=== PATIENT | female | born 1975 | race African-American/Black ===

== ENCOUNTER 2019-05-07 17:00 | Inpatient (IN) | payer OTHER ==
[~2019-05-07] VITALS: Ht 167.6 cm; Wt 102.3 kg
--- NOTE | 2019-05-07 21:05 | NUR ---
Admitted a 43 years old female from [facility] accompanied by 2 paramedics via gurney, with Diagnosis of Bilateral pelvic fracture. Patient AAOX4. In no acute distress. Patient reported pain medication started to wear off some, but pain still tolerable at this time. Denies any SOB. Assisted to BSC with 2 person assist. Needs attended to and met. Routine admission care done. Plan of care initiated. Safety measure initiated and call nino within reached. Continue to monitor.
[2019-05-07] MEDS ORDERED: Z GUARD REMEDY PASTE 57 GM TUBE TOP PRN (21:15)
[2019-05-07] MEDS ORDERED: TAMS-3 PO (21:29)
[2019-05-07] MEDS ORDERED: TIZA4TAB5 PO (21:29)
[2019-05-07] MEDS ORDERED: GABA-532 PO (21:29)
[2019-05-07] MEDS ORDERED: DOCU100C36 PO (21:29)
[2019-05-07] MEDS ORDERED: METH-406 PO (21:29)
[2019-05-07] MEDS ORDERED: METHOCARBAMOL 500 MG TABLET ONE (22:12)
[2019-05-07] MEDS ORDERED: LIDOCAINE VISCUS 2% 15 ML UDC ONE (22:14)
[2019-05-07] MEDS ORDERED: FAMOTIDINE 20 MG TABLET ONE (22:15)
[2019-05-07] MEDS ORDERED: IBUPROFEN 600 MG TABLET ONE (22:15)
[2019-05-07] MEDS ORDERED: MAG HYDROX/AL HYDROX/SIMETH 30 ML LIQUID UDC ONE (22:15)
[2019-05-07] MEDS: METHOCARBAMOL 500 MG TABLET PO PRN (22:23)
[2019-05-07] MEDS: OXYCODONE HCL 10 MG TAB.SR.12H PO SCH (23:43)
[2019-05-07] MEDS ORDERED: ONDANSETRON HCL 4 MG TABLET PO PRN (23:45)
[2019-05-08] MEDS ORDERED: MELATONIN 3 MG TABLET PO PRN
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
[2019-05-08 00:17] VITALS: BP 138/85
[2019-05-08] MEDS: OXYCODONE HCL 10 MG TAB.SR.12H PO SCH ×3 (05:38→21:24)
[2019-05-08 05:48] VITALS: BP 117/65
--- NOTE | 2019-05-08 06:11 | NUR ---
PATIENT AOX4. IN NO ACUTE DISTRESS. DENIES ANY SOB. PAIN MANAGE BY ROUTINE OXYCONTIN. ALSO GIVEN METHOCARBAMOL 500MG POX1 FOR MUSCLE SPASM. VS WNL. NEEDS ATTENDED TO AND MET. SAFETY MEASURE MAINTAINED AND CALL PERKINS WITHIN REACHED.
[2019-05-08 08:31] VITALS: BP 110/45
[2019-05-08] MEDS: DOCUSATE SODIUM 100 MG CAPSULE PO SCH ×2 (08:46→18:01)
[2019-05-08] MEDS: TIZANIDINE HCL 4 MG TABLET PO SCH ×3 (08:46→18:01)
[2019-05-08] MEDS: GABAPENTIN 100 MG CAPSULE PO SCH ×3 (08:46→18:00)
[2019-05-08] MEDS: METHOCARBAMOL 500 MG TABLET PO PRN (08:48)
[2019-05-08] MEDS: HYDROCODONE/APAP 10-325 MG TABLET PO PRN (08:54)
--- NOTE | 2019-05-08 16:06 | NUR ---
PATIENT IS ALERT, ORIENTED X4, VERBALLY RESPONSIVE, NO SOB,RESP EVEN NONLABORED,SKIN WARM AND DRY TO TOUCH, NO DISTRESS NOTED, PAIN IS MANAGED WITH PAIN MEDICATION AND REPOSITIONING, DISTRACTION. CONTINUE TO MONITOR
--- NOTE | 2019-05-08 16:28 | NUR ---
PATIENT HAD A QUESTION REGARDING HER MEDICATIONS, MADE PATIENT CLEAR ABOUT MEDICATIONS, PAIN MEDICATION, OXYCONTIN 10MG EVERY 8 HOURS, AND NORCO FOR BREAK THOUGH PAIN. ALSO GETTING HER ZENAFLEX AND ROBAXIN, PATIENT VERBALIZED UNDERSTANDING OF HER MEDS. OFFERED PATIENT TO LET NURSING KNOW IF PAIN IS NOT WELL, MANAGED, WILL FOLLOW UP WITH DR MCARTHUR NEEDED FOR PAIN MANAGEMENT.
--- NOTE | 2019-05-08 19:36 | NUR ---
PATIENT WAS REQUSTING FOR DIFFERENT PAIN MEDICATION, OXYIR, PER MD RECOMMENDATION EXPLAIN PATIENT THE CURRENT PAIN MEDS AGAIN, ENDORSED TO NEXT SHIFT ACCORDINGLY.,
[2019-05-08 20:10] VITALS: BP 108/49
[2019-05-08] MEDS: TAMSULOSIN HCL 0.4 MG CAP.SR.24H PO SCH (21:23)
--- NOTE | 2019-05-08 21:40 | NUR ---
Received pt resting in bed. AAO x4. No acute distress noted. C/o 7/10 pain on the pelvic area, routine pain med and other due med given as ordered. Safety measures maintained. Call light and personal items within reach. Will continue to monitor.
[2019-05-09] MEDS: HYDROCODONE/APAP 10-325 MG TABLET PO PRN ×2 (00:24→09:38)
[2019-05-09] MEDS: METHOCARBAMOL 500 MG TABLET PO PRN ×2 (00:24→22:13)
[2019-05-09 05:00] VITALS: BP 115/58
[2019-05-09] MEDS: OXYCODONE HCL 10 MG TAB.SR.12H PO SCH ×3 (05:34→21:03)
[2019-05-09] MEDS ORDERED: MELATONIN 3 MG TABLET PO PRN (06:30)
[2019-05-09 07:12] LABS: BASOPHILS % (AUTO) 0.5 % (0.0-2.0); EOSINOPHILS # (AUTO) 0.2 K/uL (0.0-0.7); EOSINOPHILS % (AUTO) 1.8 % (0.0-7.0); HEMATOCRIT 33.7 % (31.2-41.9); HEMOGLOBIN 10.9 g/dL (10.9-14.3); LYMPHOCYTES # (AUTO) 2.3 K/uL (20.0-40.0); LYMPHOCYTES % (AUTO) 26.4 % (20.5-51.5); MEAN CORPUSCULAR HEMOGLOBIN 29.4 uug (24.7-32.8); MEAN CORPUSCULAR HGB CONC 32 g/dL (32.3-35.6); MEAN CORPUSCULAR VOLUME 90.8 fL (75.5-95.3); MONOCYTES # (AUTO) 0.8 K/uL (2.0-10.0); MONOCYTES % (AUTO) 9.5 % (0.0-11.0); NEUTROPHILS # (AUTO) 5.3 K/uL (1.8-8.9); NEUTROPHILS % (AUTO) 61.8 % (38.5-71.5); PLATELET COUNT (AUTO) 233 K/uL (179-408); RED BLOOD CELL COUNT(AUTO) 3.72 MIL/uL (3.63-4.92); WHITE BLOOD COUNT (AUTO) 8.7 K/uL (3.8-11.8)
[2019-05-09 07:38] LABS: THYROID STIMULATING HORMONE 3.357 mIU/mL (0.358-3.740)
[2019-05-09 08:03] LABS: BILIRUBIN,TOTAL 0.3 mg/dL (0.2-1.0); CREATININE 0.7 mg/dL (0.6-1.3); TOTAL PROTEIN, SERUM 6.7 g/dL (6.4-8.2)
[2019-05-09 08:06] LABS: MAGNESIUM 1.9 mg/dL (1.8-2.4); PHOSPHOROUS 3.5 mg/dL (2.5-4.9)
[2019-05-09 08:20] VITALS: BP 119/58
[2019-05-09] MEDS: DOCUSATE SODIUM 100 MG CAPSULE PO SCH ×2 (09:04→18:04)
[2019-05-09] MEDS: GABAPENTIN 100 MG CAPSULE PO SCH ×3 (09:04→18:04)
[2019-05-09] MEDS: TIZANIDINE HCL 4 MG TABLET PO SCH ×3 (09:05→18:05)
[2019-05-09 16:11] VITALS: BP 117/55
--- NOTE | 2019-05-09 19:20 | NUR ---
Patient is AAO x 4. Able to express needs. NO acute distress. Vital signs stable for patient. Afebrile. Due meds administered as ordered and scheduled. Patient with pain of 8/10 on pelvic area [place] 10/325mg 1 tab po administered adn effective; pt. also on Oxycontin 10mg PO q 8hrs for pain mgnt. On PT/OT therapy. Patient with 1 person assist. NO c/o pain at this time, needs met, safety measures in place and will continue with care.
[2019-05-09 20:41] VITALS: BP 129/46
[2019-05-09] MEDS: TAMSULOSIN HCL 0.4 MG CAP.SR.24H PO SCH (21:02)
--- NOTE | 2019-05-09 21:31 | NUR ---
Received pt sitting in the wheelchair. AAO x4. Visitor at bedside. No acute distress noted. Pt is now safely back to bed. C/o 10/28 on pelvic area, scheduled pain med and other due med given as ordered. Safety measures maintained. Call light and personal items within reach. Will continue to monitor.
[2019-05-10] MEDS: HYDROCODONE/APAP 10-325 MG TABLET PO PRN ×2 (01:34→07:59)
[2019-05-10 04:30] VITALS: BP 106/57
[2019-05-10] MEDS: OXYCODONE HCL 10 MG TAB.SR.12H PO SCH ×2 (05:38→13:19)
[2019-05-10] MEDS: DOCUSATE SODIUM 100 MG CAPSULE PO SCH ×2 (08:00→17:43)
[2019-05-10] MEDS: METHOCARBAMOL 500 MG TABLET PO PRN ×2 (08:00→22:07)
[2019-05-10] MEDS: GABAPENTIN 100 MG CAPSULE PO SCH ×3 (08:00→17:43)
[2019-05-10 08:07] VITALS: BP 111/53
[2019-05-10] MEDS: TIZANIDINE HCL 4 MG TABLET PO SCH ×3 (09:04→17:44)
--- NOTE | 2019-05-10 13:33 | NUR ---
CALL LIGHT IS FIXED AND WORKING, PATIENT CLAIMED HER BLANKET IS MISSING, TRIED TO LOOK AROUND IN THE ROOM CONTACTED EVS, WILL CONTINUE TO LOOK.
--- NOTE | 2019-05-10 13:59 | NUR ---
INDIVIDUALIZE OVERALL PLAN OF CARE
[2019-05-10 16:44] VITALS: BP 115/59
--- NOTE | 2019-05-10 18:12 | NUR ---
CHANGED PAIN MEDICATION OXYCONTIN 10MG TO EVERY 6 HOURS AROUND THE CLOCK ORDERED BY DR YOON
[2019-05-10 20:00] VITALS: BP 125/61
--- NOTE | 2019-05-10 20:00 | NUR ---
PT RECEIVED IN BED DURING SHIFT EXCHANGED. HELPED PT TO BEDSIDE COMMODE AND REPOSITIONING. WILL CONTINUE TO MONITOR.
--- NOTE | 2019-05-11 | NUR ---
PT RESTING WITH NO SIGNS OF RESPIRATORY DISTRESS. WILL CONTINUE TO MONITOR.
[2019-05-11] MEDS: OXYCODONE HCL 10 MG TAB.SR.12H PO SCH ×5 (00:15→23:59)
[2019-05-11] MEDS: MELATONIN 3 MG TABLET PO PRN (00:15)
[2019-05-11] MEDS: HYDROCODONE/APAP 10-325 MG TABLET PO PRN (02:56)
--- NOTE | 2019-05-11 04:00 | NUR ---
PT RESTING COMFORTABLY, WITH NO COMPLAINTS OF PAIN CURRENTLY. WILL ENDORSE TO DAY SHIFT NURSE. WILL CONTINUE TO MONITOR.
[2019-05-11] MEDS: METHOCARBAMOL 500 MG TABLET PO PRN ×3 (06:29→20:45)
[2019-05-11 07:48] VITALS: BP 95/74
[2019-05-11] MEDS: GABAPENTIN 100 MG CAPSULE PO SCH ×3 (08:23→17:36)
[2019-05-11] MEDS: DOCUSATE SODIUM 100 MG CAPSULE PO SCH ×2 (08:23→17:35)
[2019-05-11] MEDS: TIZANIDINE HCL 4 MG TABLET PO SCH ×3 (08:24→17:36)
--- NOTE | 2019-05-11 18:29 | NUR ---
Pt received this morning. scrap sorter endorse holding scheduled pain medication. Pt c/o pain 10/28 at beginning of shift, following report. Scheduled pain medication administered. Pt teaching provided, and plan of care discussed. Pt reports muscle spasms being the cause of pain and wishing to utilize PRN muscle spasm medication instead of PRN [place] for pain. VSS. Pt complaint with medication administration. No therapy today. Pt assisted to BSC for voidingx2 and back to bed. Bed in locked and lowest position, alarm on, side rails up x2. All comfort and safety measures implemented. Call light and personal belongings placed within reach. Pt repositioned for comfort. Will continue to monitor for safety and endorse to oncoming cook night.
--- NOTE | 2019-05-11 19:30 | NUR ---
Received pt in bed, a/o x4. In acute distress at this time. Wet chux changed and replaced. Assisted with pericare. Needs attended. No c/o pain at this time.
[2019-05-11 19:52] VITALS: BP 120/69
[2019-05-12] MEDS: METHOCARBAMOL 500 MG TABLET PO PRN ×4 (02:39→22:28)
[2019-05-12 04:00] VITALS: BP 124/57
[2019-05-12] MEDS: OXYCODONE HCL 10 MG TAB.SR.12H PO SCH ×4 (06:18→23:56)
--- NOTE | 2019-05-12 06:32 | NUR ---
Pt in bed, resting. c/o didn't sleep well last night. She was given Robaxin PRN and oxycodone as ordered. Pt was assisted to commode several times.
[2019-05-12 07:58] LABS: BASOPHILS # (AUTO) 0.1 K/uL (0.0-8.0); BASOPHILS % (AUTO) 0.8 % (0.0-2.0); EOSINOPHILS # (AUTO) 0.2 K/uL (0.0-0.7); EOSINOPHILS % (AUTO) 1.6 % (0.0-7.0); HEMOGLOBIN 10.6 g/dL (10.9-14.3); LYMPHOCYTES # (AUTO) 2.2 K/uL (20.0-40.0); LYMPHOCYTES % (AUTO) 23.2 % (20.5-51.5); MEAN CORPUSCULAR HEMOGLOBIN 29.3 uug (24.7-32.8); MEAN CORPUSCULAR HGB CONC 33 g/dL (32.3-35.6); MEAN CORPUSCULAR VOLUME 88.6 fL (75.5-95.3); MONOCYTES # (AUTO) 0.8 K/uL (2.0-10.0); MONOCYTES % (AUTO) 8.1 % (0.0-11.0); NEUTROPHILS # (AUTO) 6.2 K/uL (1.8-8.9); NEUTROPHILS % (AUTO) 66.3 % (38.5-71.5); PLATELET COUNT (AUTO) 303 K/uL (179-408); RED BLOOD CELL COUNT(AUTO) 3.61 MIL/uL (3.63-4.92); WHITE BLOOD COUNT (AUTO) 9.3 K/uL (3.8-11.8)
[2019-05-12 08:00] VITALS: BP 109/58
[2019-05-12 08:13] LABS: BILIRUBIN,DIRECT 0.1 mg/dL (0.0-0.2); BILIRUBIN,TOTAL 0.3 mg/dL (0.2-1.0); CREATININE 0.7 mg/dL (0.6-1.3); MAGNESIUM 1.9 mg/dL (1.8-2.4); PHOSPHOROUS 4.2 mg/dL (2.5-4.9); TOTAL PROTEIN, SERUM 6.8 g/dL (6.4-8.2)
[2019-05-12] MEDS: DOCUSATE SODIUM 100 MG CAPSULE PO SCH ×2 (08:45→17:09)
[2019-05-12] MEDS: GABAPENTIN 100 MG CAPSULE PO SCH ×3 (08:46→17:09)
[2019-05-12] MEDS: TIZANIDINE HCL 4 MG TABLET PO SCH ×4 (08:46→23:56)
[2019-05-12 16:49] VITALS: BP 120/72
--- NOTE | 2019-05-12 17:31 | NUR ---
Pt received this morning, no acute distress. Reported pain caused by muscle spasms reduced through use of scheduled Zanaflex and PRN Robaxin. Pt seen by , new order received to increase Zanaflex 4mg to Q6hr. Pt teaching provided. Pt complaint with medication administration. Rescheduled therapy for afternoon. Pt assisted to BSC for BMx1, and returned to bed. Alarm on, side rails up. Call light and personal items placed within reach. Will continue to monitor and endorse to oncoming retail shift manager.
[2019-05-12] MEDS: HYDROCODONE/APAP 10-325 MG TABLET PO PRN (20:46)
[2019-05-12 20:53] VITALS: BP 107/59
--- NOTE | 2019-05-13 01:22 | NUR ---
aaox4 OOB to the BR with walker with supervision. VSS. Needs attended. Due meds given as ordered. Will monitor patient. Siderails up for safety. Robaxin given for muscle spasm.Will monitor patient.
[2019-05-13] MEDS: MELATONIN 3 MG TABLET PO PRN (01:34)
[2019-05-13 05:33] VITALS: BP 114/64
[2019-05-13] MEDS: OXYCODONE HCL 10 MG TAB.SR.12H PO SCH ×3 (05:52→18:50)
[2019-05-13] MEDS: TIZANIDINE HCL 4 MG TABLET PO SCH ×3 (05:52→17:02)
--- NOTE | 2019-05-13 06:43 | NUR ---
slept well most of the shift. VSS OOB to the BSC with assist. Voiding well. Needs attended. Due meds given as ordered. Will monitor patient.
[2019-05-13] MEDS: GABAPENTIN 100 MG CAPSULE PO SCH ×3 (08:09→17:02)
[2019-05-13] MEDS: DOCUSATE SODIUM 100 MG CAPSULE PO SCH ×2 (08:09→17:02)
[2019-05-13] MEDS: METHOCARBAMOL 500 MG TABLET PO PRN (08:09)
[2019-05-13 08:23] VITALS: BP 108/57
--- NOTE | 2019-05-13 11:00 | NUR ---
Pt received this morning, assessed, no acute distress or SOB, pain reported due to muscle spasms, PRN medication administered as ordered. Pt compliant with routine medication administration. Pt assisted to BSC for voidingx1, and returned to bed, repositioned. Bed in locked and lowest position with side rails up x2, bed alarm on. All comfort and safety needs met. Call light and personal items placed within reach. Will continue to monitor.
[2019-05-13 20:00] VITALS: BP 115/65
[2019-05-14] MEDS: OXYCODONE HCL 10 MG TAB.SR.12H PO SCH ×5 (00:10→23:07)
[2019-05-14] MEDS: TIZANIDINE HCL 4 MG TABLET PO SCH ×5 (00:11→23:06)
[2019-05-14] MEDS: MELATONIN 3 MG TABLET PO PRN (01:27)
[2019-05-14] MEDS: METHOCARBAMOL 500 MG TABLET PO PRN ×3 (02:45→21:05)
[2019-05-14 05:42] VITALS: BP 103/53
[2019-05-14] MEDS: DOCUSATE SODIUM 100 MG CAPSULE PO SCH ×2 (09:05→17:01)
[2019-05-14] MEDS: GABAPENTIN 100 MG CAPSULE PO SCH ×3 (09:05→17:01)
--- NOTE | 2019-05-14 13:35 | NUR ---
PATIENT CALLED TO THE STATION TO CATCH THE BEE. NOTED WITH LOT OF BEES IN PATIENT ROOM, ASSISTED PATIENT OUT OF ROOM RIGHT AWAY FOR SAFETY, CLOSED THE DOOR TO PROTECT OTHERS, ENGINEERING MADE AWARE AND WORKING ON THE ISSUES. PATIENT WOULD BE MOVED TO ANOTHER ROOM FOR SAFETY. PATIENT HAS LOT OF HER PERSONAL STUFF FROM HOME IN HER ROOM, SUCH LOT OF ESSENTIAL OILS IN TINY BOTTLES, BUNCH OF WHITEHEAD, DIFFUSER. ENGINEERING SPOKE TO PATIENT ABOUT SAFETY ISSUES COUPLE TIMES, HOWEVER PATIENT KEEP REFUSING TO SEND THEM HOME. DIFFUSER IS WORKING IN HER ROOM 11/11 DIFFUSING VAPORS OF ESSENTIAL OILS, WITH FRAGRANCE, SPOKE TO PATIENT COUPLE TIMES FOR FIRE SAFETY WELL, HOWEVER PATIENT REFUSED TO PUT ANYTHING AWAY, OR SEND THEM HOME. PATIENT ALSO STATED THAT "NO ONE SHOULD TOUCH ANY OF MY STUFF" REINFORCED THE INSTRUCTIONS FOR SAFETY HAZARDS. Addendum: 05/14/19 at 1405 by DEDRICK FORMAN RN, RN DIRECTOR AND INFECTION CONTROL MADE AWARE ABOUT THE ISSUE
--- NOTE | 2019-05-14 15:05 | NUR ---
TRANSFERRED PATIENT IN ANOTHER ROOM 103 FOR SAFETY. DID NOT TOUCH ANYTHING ELSE IN THE ROOM PATIENT SAID THAT " DO NOT TOUCH MY STUFF, ONLY MY FRIENDS CAN TRANSFER MY STUFF OR TOUCH THEM"
--- NOTE | 2019-05-14 15:19 | NUR ---
INTERDISCIPLINARY TEAM CONFERENCE
--- NOTE | 2019-05-14 16:51 | NUR ---
STUFF MOVED FROM ROOM 122 TO 103 BY PATIENT FAMILY, WHITEHEAD AND DIFFUSER AND SOME OTHER STUFF TAKEN HOME BY FAMILY. PATIENT MAKES STAFF MOVE CLOSETS OR OTHER FURNITURE FREQUENTLY, HERE TO THERE OR THIS END TO OTHER END IN THE ROOM.
--- NOTE | 2019-05-14 18:06 | NUR ---
PATIENT IS ALERT, ORIENTED X4, NO SOB,RESP EVEN NONLABORED,SKIN WARM AND DRY TO TOUCH NO DISTRESS NOTED
--- NOTE | 2019-05-14 18:09 | NUR ---
PATIENT IS VERY DEMANDING, CALLS TO THE NURSING STATION FREQUENTLY FOR STUFF LIKE BRING THE CHAIR FOR GUEST, BRING ANOTHER CAHIR FOR ANOTHER GUEST, BRING THE EXTRA TABLE TO THE ROOM, BRING THE EXTRA CLOSET FOR MY STUFF, REARRANGE THE STUFF IN THE ROOM, NEEDS ATTENDED APPROPRIATELY AND WITH PRIORITY.
--- NOTE | 2019-05-14 18:12 | NUR ---
CALL LIGHT WITH IN REACH, ASSISTED WITH BEDSIDE COMMODE.
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
--- NOTE | 2019-05-14 19:45 | NUR ---
Received patient in bed. AAO x4. Not in acute distress or SOB. On room air. Able to make needs known. No complain of pain at this time. Physical assessment done. Fall prevention observed. Safety measures maintained. Bed in low and lock position, alarm on, side rails up x2 for safety. Call light and frequently used items within reach. Continue to monitor.
[2019-05-14 20:48] VITALS: BP 131/68
[2019-05-15 05:48] VITALS: BP 104/49
[2019-05-15] MEDS: TIZANIDINE HCL 4 MG TABLET PO SCH ×4 (05:49→23:14)
[2019-05-15] MEDS: OXYCODONE HCL 10 MG TAB.SR.12H PO SCH ×4 (05:50→23:15)
[2019-05-15 07:43] LABS: BASOPHILS % (AUTO) 0.5 % (0.0-2.0); EOSINOPHILS # (AUTO) 0.2 K/uL (0.0-0.7); EOSINOPHILS % (AUTO) 2.1 % (0.0-7.0); HEMATOCRIT 30.4 % (31.2-41.9); HEMOGLOBIN 10.2 g/dL (10.9-14.3); LYMPHOCYTES # (AUTO) 2.3 K/uL (20.0-40.0); LYMPHOCYTES % (AUTO) 23.5 % (20.5-51.5); MEAN CORPUSCULAR HGB CONC 34 g/dL (32.3-35.6); MEAN CORPUSCULAR VOLUME 89.4 fL (75.5-95.3); MONOCYTES # (AUTO) 0.7 K/uL (2.0-10.0); NEUTROPHILS # (AUTO) 6.5 K/uL (1.8-8.9); NEUTROPHILS % (AUTO) 66.9 % (38.5-71.5); PLATELET COUNT (AUTO) 352 K/uL (179-408); WHITE BLOOD COUNT (AUTO) 9.6 K/uL (3.8-11.8)
--- NOTE | 2019-05-15 08:00 | NUR ---
RESIDENT ON BED DURING NURSING ROUNDS , AWAKE, ALERT AND RESPONSIVE, NOT IN RESPIRATORY DISTRESS .NO C/O MADE AT THIS TIME.
[2019-05-15 08:39] LABS: ALANINE AMINOTRANSFERASE 85 U/L (14-59); ALKALINE PHOSPHATASE 93 U/L (50-136); ASPARTATE AMINOTRANSFERASE 18 U/L (15-37); BILIRUBIN,DIRECT < 0.1 mg/dL (0.0-0.2); CREATININE 0.7 mg/dL (0.6-1.3); PHOSPHOROUS 3.9 mg/dL (2.5-4.9); TOTAL PROTEIN, SERUM 6.9 g/dL (6.4-8.2)
[2019-05-15 08:40] LABS: BILIRUBIN,TOTAL 0.3 mg/dL (0.2-1.0); CARBON DIOXIDE 28 mmol/L (21-32); CHLORIDE 102 mmol/L (98-107); GLUCOSE 103 mg/dL (74-106); UREA NITROGEN, BLOOD 13 mg/dL (7-18)
[2019-05-15 08:47] VITALS: BP 97/49
[2019-05-15] MEDS: DOCUSATE SODIUM 100 MG CAPSULE PO SCH ×2 (09:42→17:50)
[2019-05-15] MEDS: GABAPENTIN 100 MG CAPSULE PO SCH ×3 (09:42→23:14)
[2019-05-15] MEDS: METHOCARBAMOL 500 MG TABLET PO PRN (09:46)
[2019-05-15 15:39] VITALS: BP 108/58
--- NOTE | 2019-05-15 18:44 | NUR ---
PATIENT REFUSED TO TAKE HER 1700 DUE NEURONTIN, SHE WANTS IT TONIGHT AT BEDTIME BECAUSE IT MAKES HER SLEEP. CHARGE NURSE MADE AWARE OF IT. CALLED ALSO PHARMACY,SPOKE WITH THE PHARMACIST AND SHE SAID SHE'LL CHANGE THE TIME.
--- NOTE | 2019-05-15 18:55 | NUR ---
ALL PT'S NEED ATTENDED PROMPTLY.
[2019-05-15 21:04] VITALS: BP 114/63
[2019-05-15] MEDS ORDERED: GABAPENTIN 100 MG CAPSULE PO SCH (22:00)
[2019-05-16 05:43] VITALS: BP 104/61
[2019-05-16] MEDS: GABAPENTIN 100 MG CAPSULE PO SCH ×4 (06:07→23:06)
[2019-05-16] MEDS: TIZANIDINE HCL 4 MG TABLET PO SCH ×4 (06:07→23:06)
[2019-05-16] MEDS: OXYCODONE HCL 10 MG TAB.SR.12H PO SCH ×4 (06:08→23:06)
[2019-05-16] MEDS: DOCUSATE SODIUM 100 MG CAPSULE PO SCH ×2 (09:39→18:10)
[2019-05-16] MEDS: METHOCARBAMOL 500 MG TABLET PO PRN (09:39)
[2019-05-16] MEDS: HYDROCODONE/APAP 10-325 MG TABLET PO PRN (09:40)
[2019-05-16 10:55] VITALS: BP 122/74
[2019-05-16 16:03] VITALS: BP 117/66
--- NOTE | 2019-05-16 19:35 | NUR ---
Received patient sitting in bed. AAO x4. Not in acute distress or SOB. On room air. Able to make needs known. No complain of pain at this time. Physical assessment done. Fall prevention observed. Safety measures maintained. Bed in low and lock position, alarm on, side rails up x2 for safety. Call light and frequently used items within reach. Continue to monitor.
[2019-05-17] MEDS: GABAPENTIN 100 MG CAPSULE PO SCH ×4 (05:44→23:21)
[2019-05-17] MEDS: TIZANIDINE HCL 4 MG TABLET PO SCH ×4 (05:45→23:21)
[2019-05-17] MEDS: OXYCODONE HCL 10 MG TAB.SR.12H PO SCH ×4 (05:45→18:34)
--- NOTE | 2019-05-17 07:30 | NUR ---
Patient calm and comfortable with no signs of distress; patient will continue to be monitored.
[2019-05-17 08:00] VITALS: BP 116/65
[2019-05-17] MEDS: DOCUSATE SODIUM 100 MG CAPSULE PO SCH ×2 (08:41→18:32)
[2019-05-17 16:00] VITALS: BP 112/64
--- NOTE | 2019-05-17 19:25 | NUR ---
Patient calm and comfortable through out shift with no sings of distress; patient with stable vital signs. Patient refused oxycodone as she stated she needed to do work ; oxycodone returned in return bin.
--- NOTE | 2019-05-17 19:36 | NUR ---
Received patient in bed. AAO x4. Not in acute distress or SOB. On room air. Able to make needs known. No complain of pain at the time. Physical assessment done. Fall prevention observed. Safety measures maintained. Bed in low and lock position, alarm on, side rails up x2 for safety. Call light and frequently used items within reach. Continue to monitor.
[2019-05-17 20:29] VITALS: BP 124/79
[2019-05-18] MEDS: OXYCODONE HCL 10 MG TAB.SR.12H PO SCH ×5 (00:15→18:00)
--- NOTE | 2019-05-18 03:38 | NUR ---
End of the shift report: Patient was stable during the shift and had a good sleep. No signs of acute distress or SOB. Complained of pain in her pelvic area. Warm bag was provided based on patient's request. Pain assessed and reassessed after pain medication. All due medication were given as ordered and well tolerated. All needs attended promptly. Physical assessment done. Fall prevention observed. Safety measures maintained. Bed in low and lock position, alarm on, side rails up x2 for safety. Call light and frequently used items within reach. Continue to monitor and will endorse to the oncoming nurse accordingly.
[2019-05-18 04:30] VITALS: BP 125/76
[2019-05-18] MEDS: TIZANIDINE HCL 4 MG TABLET PO SCH ×3 (05:07→17:01)
[2019-05-18] MEDS: GABAPENTIN 100 MG CAPSULE PO SCH ×3 (05:07→17:01)
[2019-05-18] MEDS: METHOCARBAMOL 500 MG TABLET PO PRN ×3 (08:23→21:33)
[2019-05-18] MEDS: DOCUSATE SODIUM 100 MG CAPSULE PO SCH ×2 (08:24→17:01)
--- NOTE | 2019-05-18 14:53 | NUR ---
PATIENT IS ALERT, ORIENTED X4, VERBALLY RESPONSIVE, NO SOB, RESP EVEN NONLABORED, SKIN WARM AND DRY TO TOUCH, NO DISTRESS NOTED, TOLERATED PT, OT WELL, ABLE TO AMBULATE WITH FWW, USES COMMODE BY HERSELF. PATIENT STATED SHE WAS WILLING TO TAKE LESS PAIN MEDS BUT SHE COULD NOT. PAIN IS WELL MANAGED.
--- NOTE | 2019-05-18 19:44 | NUR ---
PATIENT ALERT ORIENTED, NO SOB NO CHEST PAIN, CONT PAIN MANAGEMENT. PATIENT STAYED IN HER BED, RESTING, CONT TO MONITOR.
[2019-05-18] MEDS: HYDROCODONE/APAP 10-325 MG TABLET PO PRN (20:25)
[2019-05-18 20:43] VITALS: BP 129/85
[2019-05-19] MEDS: OXYCODONE HCL 10 MG TAB.SR.12H PO SCH ×4 (00:51→18:07)
[2019-05-19] MEDS: TIZANIDINE HCL 4 MG TABLET PO SCH ×4 (00:51→18:07)
[2019-05-19] MEDS: GABAPENTIN 100 MG CAPSULE PO SCH ×4 (00:51→18:06)
[2019-05-19 05:43] VITALS: BP 128/73
--- NOTE | 2019-05-19 07:19 | NUR ---
Nurse Notes: report from the night nurse Priscila Barth RN, patient is rsting in bed, Pain level is 7-8/10 in the hips. Room scented, request pain medications at 0930. In no respiratory distress.
[2019-05-19] MEDS: DOCUSATE SODIUM 100 MG CAPSULE PO SCH ×2 (09:01→17:18)
[2019-05-19] MEDS: METHOCARBAMOL 500 MG TABLET PO PRN (10:11)
[2019-05-19] MEDS: HYDROCODONE/APAP 10-325 MG TABLET PO PRN (10:12)
--- NOTE | 2019-05-19 10:12 | NUR ---
Nurse Notes: medicated with [place] 10/325, pain level was 8/10. patient will have her therapy. Complaining of hip pain.
[2019-05-19 16:35] VITALS: BP 105/65
--- NOTE | 2019-05-19 19:30 | NUR ---
Nurse Notes: report given to Alma Suggs RN, patient is resting in bed. In no respiratory distress.
--- NOTE | 2019-05-19 19:45 | NUR ---
Nurses notes: Received pt in no acute distress. sitting on the side of the bed. Pt is alert and oriented x4. Pt is oob with a walker. Uses the bedside commode. Will continue to monitor for safety.
[2019-05-19 20:16] VITALS: BP 108/53
[2019-05-20] MEDS: TIZANIDINE HCL 4 MG TABLET PO SCH ×5 (00:04→23:03)
[2019-05-20] MEDS: OXYCODONE HCL 10 MG TAB.SR.12H PO SCH ×5 (00:06→23:04)
[2019-05-20] MEDS: GABAPENTIN 100 MG CAPSULE PO SCH ×5 (00:06→23:03)
[2019-05-20 04:55] VITALS: BP 110/64
[2019-05-20] MEDS: METHOCARBAMOL 500 MG TABLET PO PRN ×2 (06:53→16:32)
--- NOTE | 2019-05-20 07:30 | NUR ---
Nurses Notes: Endorsed to Swetha JORGE. Pt is in no acute distress, lying in bed.
--- NOTE | 2019-05-20 07:40 | NUR ---
Nurses notes: Endorsed to Swetha JORGE. Pt is lying in bed, in no acute distress.
[2019-05-20 07:55] LABS: BILIRUBIN,TOTAL 0.2 mg/dL (0.2-1.0); CREATININE 0.7 mg/dL (0.6-1.3); TOTAL PROTEIN, SERUM 6.6 g/dL (6.4-8.2)
[2019-05-20 08:00] VITALS: BP 100/46
[2019-05-20] MEDS: DOCUSATE SODIUM 100 MG CAPSULE PO SCH ×2 (08:04→17:45)
[2019-05-20 16:00] VITALS: BP 102/60
[2019-05-20] MEDS: HYDROCODONE/APAP 10-325 MG TABLET PO PRN (16:34)
[2019-05-20 20:36] VITALS: BP 118/53
[2019-05-21] MEDS: METHOCARBAMOL 500 MG TABLET PO PRN ×2 (02:21→14:23)
[2019-05-21 05:58] VITALS: BP 126/70
[2019-05-21] MEDS: OXYCODONE HCL 10 MG TAB.SR.12H PO SCH ×4 (06:06→23:00)
[2019-05-21] MEDS: GABAPENTIN 100 MG CAPSULE PO SCH ×4 (06:06→23:00)
[2019-05-21] MEDS: TIZANIDINE HCL 4 MG TABLET PO SCH ×4 (06:06→23:00)
[2019-05-21 07:30] VITALS: BP 104/60
[2019-05-21] MEDS: DOCUSATE SODIUM 100 MG CAPSULE PO SCH ×2 (08:12→18:12)
--- NOTE | 2019-05-21 13:50 | NUR ---
INTERDISCIPLINARY TEAM CONFERENCE
[2019-05-21 15:30] VITALS: BP 119/67
--- NOTE | 2019-05-21 15:52 | NUR ---
NO CHANGES NOTED, NO DISTRESS NOTED, PAIN IS WELL MANAGED WITH PAIN MEDICATION.
[2019-05-21 20:34] VITALS: BP 129/59
[2019-05-22] MEDS: OXYCODONE HCL 10 MG TAB.SR.12H PO SCH ×3 (05:14→17:54)
[2019-05-22] MEDS: TIZANIDINE HCL 4 MG TABLET PO SCH ×3 (05:14→17:53)
[2019-05-22] MEDS: GABAPENTIN 100 MG CAPSULE PO SCH ×3 (05:14→17:53)
[2019-05-22 05:26] VITALS: BP 131/83
--- NOTE | 2019-05-22 05:41 | NUR ---
End of the shift report: Patient was stable during the shift and had a good sleep. No signs of acute distress or SOB. Complained of pain in her pelvic area. Pain assessed and reassessed after pain medication. All due medication were given as ordered and well tolerated. All needs attended promptly. DVT pump in place. Physical assessment done. Fall prevention observed. Safety measures maintained. Bed in low and lock position, alarm on, side rails up x2 for safety. Call light and frequently used items within reach. Continue to monitor and will endorse to the oncoming nurse accordingly.
[2019-05-22 08:00] VITALS: BP 105/56
[2019-05-22] MEDS: METHOCARBAMOL 500 MG TABLET PO PRN ×2 (08:40→15:05)
[2019-05-22] MEDS: DOCUSATE SODIUM 100 MG CAPSULE PO SCH ×2 (08:40→17:53)
[2019-05-22 16:08] VITALS: BP 124/60
--- NOTE | 2019-05-22 19:40 | NUR ---
Patient AAO x 4. No acute distress noted. Vital signs stable for patient. Pt. on routine Oxycontin 10mg PO q 6hrs PRN for pain. Patient asked for PRN [place], informed Dr. Barone and with an order for [place] 10/325mg 1 tab PO q 6hrs for pain mgnt. Pt. also on Zanaflex and Robaxin. on PT/OT therapy and 1 person assist. Needs attended, safety measures in place, call light left at bed side, endorsed to next shift and will continue with care.
[2019-05-22] MEDS ORDERED: HYDROCODONE/APAP 10-325 MG TABLET PO PRN (19:45)
[2019-05-22 20:29] VITALS: BP 123/73
[2019-05-23] MEDS: OXYCODONE HCL 10 MG TAB.SR.12H PO SCH ×5 (00:08→23:57)
[2019-05-23] MEDS: TIZANIDINE HCL 4 MG TABLET PO SCH ×5 (00:09→23:01)
[2019-05-23] MEDS: GABAPENTIN 100 MG CAPSULE PO SCH ×5 (00:09→23:00)
[2019-05-23 05:33] VITALS: BP 122/64
[2019-05-23 08:00] VITALS: BP 123/62
[2019-05-23] MEDS: DOCUSATE SODIUM 100 MG CAPSULE PO SCH ×2 (08:10→17:47)
[2019-05-23] MEDS: METHOCARBAMOL 500 MG TABLET PO PRN (10:38)
[2019-05-23 16:35] VITALS: BP 106/58
--- NOTE | 2019-05-23 16:46 | NUR ---
Patient in stable condition, In NO acute distress. NO new change of condition noted during shift. Vital signs stable. Patient on routine Oxycontin 10mg 1 tab PO q 6hrs. Patient also administered PRN Robaxin 500mg PO q 6hrs pre PT/OT and effective. Patient with stand by assist with most ADLs; assisted with care during shift. Needs attended, safety measures in place, call light left at bed side and will continue with care.
[2019-05-23 20:26] VITALS: BP 107/60
[2019-05-24 05:00] VITALS: BP_SYST 107; BP_SYST 113; BP_DIAS 60; BP_DIAS 64
[2019-05-24] MEDS: TIZANIDINE HCL 4 MG TABLET PO SCH ×4 (05:43→23:35)
[2019-05-24] MEDS: GABAPENTIN 100 MG CAPSULE PO SCH ×4 (05:43→23:35)
[2019-05-24 08:00] VITALS: BP 118/51
[2019-05-24] MEDS: DOCUSATE SODIUM 100 MG CAPSULE PO SCH ×2 (09:11→17:13)
[2019-05-24 16:53] VITALS: BP 113/32
[2019-05-24] MEDS: OXYCODONE HCL 10 MG TAB.SR.12H PO SCH ×2 (17:19→23:35)
[2019-05-24] MEDS ORDERED: OXYCODONE HCL 10 MG TAB.SR.12H PO SCH (18:00)
--- NOTE | 2019-05-24 19:47 | NUR ---
Patient AAO x 4. No acute distress noted. Vital signs stable for patient. Pt with some concerns regarding discharge transition, particularly on how she is going to climb stairs on her condo. Also verbalized some upset on the "medical politics". Provided patient with active listening and informed her that AM nurse will be communicated with for possible intervention by addiction social worker. Denies pain and discomfort at this time. Safety measures in place, call light left at bed side, reinforced importance of asking for help. Will continue to monitor.
[2019-05-24 20:00] VITALS: BP 112/62
[2019-05-25] MEDS ORDERED: METHOCARBAMOL 500 MG TABLET ONE (00:42)
[2019-05-25] MEDS: METHOCARBAMOL 500 MG TABLET PO PRN ×3 (00:47→18:46)
[2019-05-25 05:00] VITALS: BP 120/74
[2019-05-25] MEDS: GABAPENTIN 100 MG CAPSULE PO SCH ×3 (06:09→17:21)
[2019-05-25] MEDS: OXYCODONE HCL 10 MG TAB.SR.12H PO SCH ×3 (06:09→17:21)
[2019-05-25] MEDS: TIZANIDINE HCL 4 MG TABLET PO SCH ×3 (06:09→17:21)
--- NOTE | 2019-05-25 06:50 | NUR ---
Patient was stable during the shift and had fair sleep. Pt doing work in bed, and did not sleep until after 1 AM. PRN Robaxin given x1. No signs of acute distress or SOB. Complained of pain in her pelvic area. Pain assessed and reassessed after pain medication. All due medication were given as ordered and well tolerated. All needs attended promptly. DVT pump in place. Safety measures maintained. Bed in low and lock position, alarm on, side rails up x2 for safety. Call light and frequently used items within reach. Pt verbalized need for PRN medication before rehab activities, will communicate with AM nurse and ask the MD for medication revision. Will endorse accordingly.
[2019-05-25] MEDS: DOCUSATE SODIUM 100 MG CAPSULE PO SCH ×2 (08:12→17:21)
[2019-05-25 08:52] VITALS: BP 111/75
--- NOTE | 2019-05-25 15:00 | NUR ---
RECEIVED PATIENT IN BED IN STABLE CONDITION. DURING ROUNDS, PATIENT C/O OF OXYCODONE HCL 10MG EVERY 8 HOURS. VERBALIZE THAT IS ITS NOT EFFECTIVE. MD YOON NOTED AND CHANGE IT TO OXYCODONE [id number] EVERY 6 HOURS. NOT IN DISTRESS.WILL CONTINUE MONITOR
[2019-05-25 20:03] VITALS: BP 129/78
[2019-05-26] MEDS: GABAPENTIN 100 MG CAPSULE PO SCH ×5 (00:18→23:45)
[2019-05-26] MEDS: TIZANIDINE HCL 4 MG TABLET PO SCH ×5 (00:18→23:56)
[2019-05-26] MEDS: OXYCODONE HCL 10 MG TAB.SR.12H PO SCH ×5 (00:19→23:45)
[2019-05-26 05:00] VITALS: BP 115/55
--- NOTE | 2019-05-26 05:43 | NUR ---
Patient was stable during the shift and good sleep throughout the night. All due pain and antispasm medications given and tolerated well. No signs of acute distress or SOB. Complained of pain in her pelvic area. All needs attended promptly. DVT pump in place. Safety measures maintained. Bed in low and lock position, alarm on, side rails up x2 for safety. Call light and frequently used items within reach. Satisfied with current plan of care. Will endorse accordingly.
--- NOTE | 2019-05-26 07:30 | NUR ---
Received patient in bed. AAO x4. Not in acute distress or SOB. On room air. Able to make needs known. No complain of pain at the time. Fall prevention observed. Safety measures maintained. Bed in low and lock position, alarm on, side rails up x2 for safety. Call light and frequently used items within reach. Continue to monitor.
[2019-05-26] MEDS: DOCUSATE SODIUM 100 MG CAPSULE PO SCH ×2 (08:10→16:00)
[2019-05-26 15:38] VITALS: BP 117/65
--- NOTE | 2019-05-26 19:45 | NUR ---
received patient from day shift , daughter at bedside , no distress , denies pain at this time , on RA
[2019-05-26] MEDS: METHOCARBAMOL 500 MG TABLET PO PRN (20:06)
[2019-05-26 20:30] VITALS: BP 105/60
--- NOTE | 2019-05-26 23:15 | NUR ---
pain medication offered and accepted
--- NOTE | 2019-05-27 02:00 | NUR ---
awake having a hard time sleeping , melatonin , offered and accepted
[2019-05-27] MEDS ORDERED: MELATONIN 3 MG TABLET ONE (02:03)
[2019-05-27] MEDS: MELATONIN 3 MG TABLET PO PRN (02:09)
--- NOTE | 2019-05-27 03:32 | NUR ---
resting and sleeping soundly , no distress at this time
[2019-05-27 05:00] VITALS: BP 109/58
[2019-05-27] MEDS: TIZANIDINE HCL 4 MG TABLET PO SCH ×5 (06:10→23:54)
[2019-05-27] MEDS: GABAPENTIN 100 MG CAPSULE PO SCH ×4 (06:10→23:53)
[2019-05-27] MEDS: OXYCODONE HCL 10 MG TAB.SR.12H PO SCH ×4 (06:11→23:54)
[2019-05-27] MEDS: DOCUSATE SODIUM 100 MG CAPSULE PO SCH ×2 (09:20→17:06)
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
--- NOTE | 2019-05-27 14:43 | NUR ---
Nursing- Dr Moran in to see patient, informed possible discharge plan end of the week, prescriptions obtained , placed in pt.chart.
[2019-05-27] MEDS: METHOCARBAMOL 500 MG TABLET PO PRN ×2 (15:27→21:54)
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
[2019-05-27 20:17] VITALS: BP 107/71
--- NOTE | 2019-05-27 22:00 | NUR ---
NURSE MEDICATED PATIENT FOR A GENERALIZED PAIN WITH ROBAXIN 500 MG PO PRN. NURSE NOTES THAT PATIENT WILL ALSO RECEIVE ROUTINE PAIN MED AT 2400. NO SIGNS OF SEVERE DISTRESS.
--- NOTE | 2019-05-28 04:00 | NUR ---
VSS 98.1-63-19 BP 112/55. SATS 99% ON ROOM AIR. PATIENT RESTS QUIETLY. NO SIGNS OF ACUTE CARDIAC/RESPIRATORY DISTRESS OR SUPPRESSION.
[2019-05-28 05:00] VITALS: BP 112/55
[2019-05-28] MEDS: GABAPENTIN 100 MG CAPSULE PO SCH ×3 (05:53→17:30)
[2019-05-28] MEDS: OXYCODONE HCL 10 MG TAB.SR.12H PO SCH ×3 (05:54→17:30)
[2019-05-28] MEDS: TIZANIDINE HCL 4 MG TABLET PO SCH ×3 (05:54→17:30)
[2019-05-28 07:55] VITALS: BP 105/55
[2019-05-28] MEDS: DOCUSATE SODIUM 100 MG CAPSULE PO SCH ×2 (09:34→17:30)
--- NOTE | 2019-05-28 16:19 | NUR ---
INTERDISCIPLINARY TEAM CONFERENCE
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
[2019-05-28 20:32] VITALS: BP 112/71
[2019-05-28] MEDS: METHOCARBAMOL 500 MG TABLET PO PRN (20:51)
--- NOTE | 2019-05-29 | NUR ---
PATIENT RECEIVED ROBAXIN 500 MG PO @ 21:54 TO CONTROL ANY DISCOMFORT PATIENT WAS EXPERIENCING.
[2019-05-29] MEDS: GABAPENTIN 100 MG CAPSULE PO SCH ×3 (00:17→11:46)
[2019-05-29] MEDS: TIZANIDINE HCL 4 MG TABLET PO SCH ×3 (00:18→11:46)
[2019-05-29] MEDS: OXYCODONE HCL 10 MG TAB.SR.12H PO SCH ×3 (00:18→11:46)
[2019-05-29 04:00] VITALS: BP 111/60
--- NOTE | 2019-05-29 07:30 | NUR ---
PT. ON BED AWAKE , ALERT , RESPONSIVE. NOT IN RESPIRATORY DISTRESS. NO C/O PAIN NOR DISCOMFORT DURING NURSING ROUNDS.
[2019-05-29 07:56] VITALS: BP 99/50
[2019-05-29] MEDS: DOCUSATE SODIUM 100 MG CAPSULE PO SCH (09:13)
--- NOTE | 2019-05-29 10:00 | NUR ---
NO C/O PAIN AT 1000. Addendum: 05/29/19 at 1342 by MUNIRA CASTANEDA RN Amended: Links added.
--- NOTE | 2019-05-29 12:55 | NUR ---
EBONIE INSTRUCTION GIVEN REGARDING FF-UP CHECK UP AND REGARDING HOME MEDS AND PRESCRIPTION. ACKNOWLEDGED UNDERSTANDING. CAME AND HAD SEEN PT. DUE MEDS FOR 12NOON GIVEN .PICKED UP BY RECEPTIONIST TELEPHONE OPERATOR, EBONIE HOME IN STABLE CONDITION VIA PRIVATE VEHICLE.
== END 2019-05-29 12:55 | disposition home health service (06) | DRG 862 ==
PROVIDERS: ADMIT Physical Medicine & Rehabilitation Pain Medicine; ATTEND Physical Medicine & Rehabilitation Pain Medicine
DX: S32.592D Other specified fracture of left pubis, subsequent encounter for fracture with routine healing (principal); E44.0 Moderate protein-calorie malnutrition; R26.9 Unspecified abnormalities of gait and mobility; S32.591D Other specified fracture of right pubis, subsequent encounter for fracture with routine healing; S32.10XD Unspecified fracture of sacrum, subsequent encounter for fracture with routine healing; S80.02XD Contusion of left knee, subsequent encounter; S80.01XD Contusion of right knee, subsequent encounter; V03.10XD Pedestrian on foot injured in collision with car, pick-up truck or van in traffic accident, subsequent encounter; F43.20 Adjustment disorder, unspecified; M62.838 Other muscle spasm
CPT/HCPCS: 36415; 76705; 82652; 83735; 84100; 84443; 85025; A4663; Q0162